=== PATIENT | female | born 1965 | race Caucasian/White ===

== ENCOUNTER 2017-09-06 09:34 | Emergency (ER) | payer BC, OTHER ==
[2017-09-06] MEDS ORDERED: Ondansetron HCl/PF 4 MG/2 ML Vial ONE (10:27)
[2017-09-06] MEDS ORDERED: Ketorolac Tromethamine 30 MG/ML VIAL ONE (10:27)
[2017-09-06 11:08] LABS: #Eosinphils 0.1 thou/uL (0.0-0.7); #Lymphocytes 1.9 thou/uL (1.20-3.40); #Monocytes 0.4 thou/uL (0.11-0.59); #Neutrophils 4.1 thou/uL (1.40-6.50); %Basophils 0.7 % (0.0-1.0); %Eosinophils 2.1 % (0.0-10.0); %Lymphocytes 28.9 % (21.0-51.0); %Monocytes 6.5 % (0.0-10.0); Hematocrit 41.5 % (36.0-47.0); Mean Platelet Volume 8.7 fL (7.4-10.4); Red Blood Cell (RBC) Count 4.98 mill/uL (4.20-5.40); White Blood Cell (WBC) Count 6.6 thou/uL (4.8-10.8)
[2017-09-06 11:31] LABS: ALT (SGPT) 18 U/L (8-55); AST (SGOT) 30 U/L (5-34); Alkaline Phosphatase 79 U/L (40-150); Anion Gap 12 mmol/L (10-20); BUN (Urea Nitrogen) 13 mg/dL (7.0-18.7); Bilirubin, Total 0.5 mg/dL (0.2-1.2); Calc. Creatinine Clearance 0 mL/min (70-130); Calcium 9.3 mg/dL (7.8-10.44); Carbon Dioxide 22 mmol/L (22-29); Chloride 106 mmol/L (98-107); Estimated GFR-MDRD 73; Globulin 3.7 g/dL (2.4-3.5); Lipase 29 U/L (8-78); Protein, Total 7.5 g/dL (6.0-8.3)
--- NOTE | 2017-09-06 11:49 | ULT ---
RIGHT UPPER QUADRANT ABDOMINAL ULTRASOUND: Date: 09/06/17 HISTORY: Right upper quadrant abdominal pain. TECHNIQUE: Multiplanar Fuentes scale and color Doppler images were obtained in a right upper quadrant abdominal ult rasound. FINDINGS: The liver demonstrates increased echogenicity without focal lesions or intrahepatic ductal dilatation . The gallbladder contains shadowing stones without gallbladder wall thickening or pericholecystic fl uid. Common bile duct is normal measuring 4.0 mm. The visualized portions of the pancreas are unremarkable. The right kidney is normal in echogenicity without hydronephrosis or calculus and measures 11.0 cm in length. IMPRESSION: 1. Cholelithiasis. 2. Fatty liver. POS: KATIA
[2017-09-06] MEDS ORDERED: Metoclopramide HCl 10 MG/2 ML VIAL ONE (12:18)
== END 2017-09-06 13:24 | disposition home or self-care (01) ==
LOC: ERS 09:34
DX: K80.20 Calculus of gallbladder without cholecystitis without obstruction (principal); E11.9 Type 2 diabetes mellitus without complications; I10 Essential (primary) hypertension; Z87.891 Personal history of nicotine dependence
CPT/HCPCS: 76705; 80053; 83690; 84703; 85025; 93005; 96361; 96365; 96375; J1885; J2405; J2765

== ENCOUNTER 2017-09-07 14:20 | Outpatient (CLI) | payer BC | END 2017-09-07 14:21 | disposition home or self-care (01) | LOC: LABBT 14:20 | PROVIDERS: ATTEND Surgery | DX: Z01.818 Encounter for other preprocedural examination (principal); K80.21 Calculus of gallbladder without cholecystitis with obstruction; T85.858A Stenosis due to other internal prosthetic devices, implants and grafts, initial encounter ==

== ENCOUNTER 2017-09-08 09:12 | Day surgery (SDC) | payer BC ==
[2017-09-07 14:45] VITALS: BMI 39.1
[2017-09-08] MEDS ORDERED: cefOXitin 2 GM, Syringe 1 ML in Sterile Water 10 ML SLOW IVP SCH (09:30)
[2017-09-08] MEDS ORDERED: Bupivacaine 0.25% HCL 30 ML VIAL ONE (10:50)
[2017-09-08] MEDS ORDERED: Fentanyl 100 MCG/2 ML VIAL ONE ×3 (10:53→13:22)
[2017-09-08] MEDS ORDERED: Midazolam HCl 2 mg/2 ml Vial ONE (10:53)
[2017-09-08] MEDS ORDERED: Lidocaine 2% w/Epinephrine 1:200K 20 ML VIAL ONE (11:16)
--- NOTE | 2017-09-08 12:57 | OP ---
PREOPERATIVE DIAGNOSES: Stomal stenosis with dysfunctional Lap Band, symptomatic cholelithiasis. SURGEON: Rudolph Perez M.D. PROCEDURE PERFORMED: Laparoscopic removal of Lap Band and port with laparoscopic cholecystectomy. INDICATIONS: The patient is a 52-year-old female who has a Lap Band. She is having difficulty despi te it being empty with a frequent nocturnal cough, aspiration pneumonia and dysphagia. She also has been having right upper quadrant pain radiating to the back associated with nausea. Ultrasound showe d cholelithiasis. FINDINGS: Dense capsule around the band, gallbladder was distended. The cystic duct was very small caliber unlikely to have any stones that had passed. PROCEDURE IN DETAIL: After informed consent was obtained, the patient was taken to the operating [facility] and given general endotracheal anesthesia. She was placed in the supine position. Her abdomen was prepped and draped in the usual fashion. An upper midline incision was performed 8 inches below the xiphoid, two stay sutures of 0 Vicryl placed to either side of midline. Midline incised. Digital p alpation revealed no local adhesions. A blunt 10/12 mm trocar inserted. Pneumoperitoneum was create d to a pressure of 15 mmHg. The patient placed in the reverse Trendelenburg position. Nathansen toño er retractor inserted. Left lobe of liver retracted superiorly. A 5 mm port was placed just to the left of the falciform and then another 5 mm port placed where the Lap Band port is. The tubing was d ivided sharply and traced down to the buckle of the band and the buckle was dissected out sharply, th en the capsule was incised sharply, and the band was unbuckled, then it was removed from around the s tomach and removed from the abdomen. Then, the patient was adjusted so that the right side was up an d 2 other 5-mm ports were placed right subcostally. The gallbladder grasped and advanced superiorly. The peritoneum lysed distally to expose the cystic artery and cystic duct and the critical view and these structures were triply ligated with Hemoclips and divided. The gallbladder was removed from i ts fossa utilizing electrocautery, placed in Endosac and removed from the abdomen in the Endosac. He mostasis was assured. Trocars removed and retractors removed. Skin incision in the left upper quadr ant was enlarged and the Lap Band port was dissected out and removed. Hemostasis assured. Subcutane ous reapproximated with interrupted 3-0 Vicryl. Skin closed with interrupted 4-0 Rapide. Dermabond applied. The fascia was closed prior to that with interrupted [id number] of 0 Vicryl. Patient tolerated the procedure well and transferred to recovery in good condition. Sponge and needle count verified correct x2.
[2017-09-08] MEDS ORDERED: Ketorolac Tromethamine 30 MG/ML VIAL ONE (14:59)
[2017-09-08] MEDS ORDERED: Dexamethasone 20 MG/5 ML VIAL ONE (14:59)
[2017-09-08] MEDS ORDERED: Propofol 200 MG/20 ML VIAL ONE (14:59)
[2017-09-08] MEDS ORDERED: diphenhydrAMINE 50 MG/ML VIAL ONE (14:59)
[2017-09-08] MEDS ORDERED: Ondansetron HCl/PF 4 MG/2 ML Vial ONE (14:59)
[2017-09-08] MEDS ORDERED: Lidocaine 1% PF 5 ML VIAL ONE (14:59)
[2017-09-08] MEDS ORDERED: Glycopyrrolate 0.2 MG/ML 5 ML SYRINGE ONE (14:59)
[2017-09-08] MEDS ORDERED: Hydrocodone-Acetamin 15 ML UDCUP ONE (15:16)
== END 2017-09-08 15:55 | disposition home or self-care (01) ==
LOC: SDC 09:12
PROVIDERS: ATTEND Surgery
PROC: 0DP64CZ Removal of Extraluminal Device from Stomach, Percutaneous Endoscopic Approach (ICD-10-PCS; principal; 2017-09-08)
PROC: 0FT44ZZ Resection of Gallbladder, Percutaneous Endoscopic Approach (ICD-10-PCS; principal; 2017-09-08)
DX: T85.858A Stenosis due to other internal prosthetic devices, implants and grafts, initial encounter (principal); K80.10 Calculus of gallbladder with chronic cholecystitis without obstruction; E11.9 Type 2 diabetes mellitus without complications; I10 Essential (primary) hypertension; Z79.84 Long term (current) use of oral hypoglycemic drugs; Z79.899 Other long term (current) drug therapy; Z88.5 Allergy status to narcotic agent; Z98.890 Other specified postprocedural states
CPT/HCPCS: 88304; 96374; A4216; J0131; J0694; J1100; J1200; J1885; J2001; J2250; J2405; J2704; J3010; S0020